=== PATIENT | female | born 1990 | race Caucasian/White ===

== ENCOUNTER 2019-04-05 20:33 | Emergency (ER) | payer OTHER, MEDICAID ==
[~2019-04-05] VITALS: Ht 162.6 cm; Wt 70.3 kg
[~2019-04-05 20:33] MED LIST: ACETAMINOPHEN-1 EAC1 PO; AMOXICILLIN500 M1 PO; AUGMENTIN 875875 MG PO; CLEOCIN HCL150 MG PO; DEPO-PROVE150 MG/1 M; EPIPEN 2-P0.3 MG/0.3; EPIPEN 2-P0.3 MG/0.3 IM; HYDROCODONE-AP1 EAC6 PO; KEFLEX500 MG PO; ZOFRAN4 MG PO
[2019-04-05] MEDS ORDERED: LATUDA80 MG PO (20:41)
[2019-04-05] MEDS ORDERED: VISTARIL 25 MG25 M1 PO (20:41)
[2019-04-05] MEDS ORDERED: NABUMETONE 750750 M1 PO (21:24)
[2019-04-05 22:14] VITALS: BP 150/81
== END 2019-04-05 22:18 | disposition home or self-care (01) ==
LOC: M.ERS 20:33
DX: S93.492A Sprain of other ligament of left ankle, initial encounter (principal); Z88.2 Allergy status to sulfonamides; Z88.1 Allergy status to other antibiotic agents; Z91.030 Bee allergy status; W01.0XXA Fall on same level from slipping, tripping and stumbling without subsequent striking against object, initial encounter; Y93.89 Activity, other specified; Y92.89 Other specified places as the place of occurrence of the external cause; Y99.8 Other external cause status

== ENCOUNTER 2020-10-27 11:34 | Emergency (ER) | payer OTHER ==
[~2020-10-27] VITALS: Ht 162.6 cm; Wt 61.2 kg
[~2020-10-27 11:34] MED LIST changes: +LATUDA80 MG PO; +NABUMETONE 750750 M1 PO; +VISTARIL 25 MG25 M1 PO
[2020-10-27] MEDS ORDERED: ATIVAN0.5 M1 PO (11:46)
[2020-10-27] MEDS ORDERED: LEXAPRO 10 MG T10 M1 PO (11:47)
[2020-10-27 11:57] LABS: URINE BILIRUBIN NEGATIVE (Negative); URINE BLOOD 1+ (Negative); URINE CLARITY CLEAR; URINE COLOR DARK YELLOW; URINE GLUCOSE-RANDOM TRACE (Negative); URINE KETONES NEGATIVE (Negative); URINE LEUKOCYTES 1+ (Negative); URINE NITRITE POSITIVE (Negative); URINE PROTEIN 1+ (Negative); URINE SPECIFIC GRAVITY 1.025 (1.005-1.030)
[2020-10-27 12:02] LABS: SQUAMOUS 4-10 Moderate /LPF (0-3)
[2020-10-27 12:03] LABS: CASTS None Seen /LPF (None Seen); CRYSTALS None Seen /LPF (None Seen); MUCUS 0-3 Light strn/LPF (None Seen); URINE RBC 3-10 Few /HPF (0-2); URINE WBC 0-5 Rare /HPF (0-5)
[2020-10-27] MEDS ORDERED: NAPROSYN500 MG PO (12:50)
[2020-10-27] MEDS ORDERED: MACROBID 100 M100 M1 PO (12:50)
[2020-10-27] MEDS ORDERED: TYLENOL325 M1 PO (12:50)
[2020-10-27 12:59] VITALS: BP 115/65
== END 2020-10-27 13:00 | disposition home or self-care (01) ==
LOC: M.ERS 11:34
PROVIDERS: Emergency Medicine
DX: N39.0 Urinary tract infection, site not specified (principal); Z20.822 Contact with and (suspected) exposure to COVID-19; Z88.1 Allergy status to other antibiotic agents; Z88.2 Allergy status to sulfonamides; Z91.030 Bee allergy status

== ENCOUNTER 2021-01-15 15:58 | Emergency (ER) | payer OTHER ==
[~2021-01-15] VITALS: Ht 162.6 cm; Wt 54.4 kg
[~2021-01-15 15:58] MED LIST changes: +ATIVAN0.5 M1 PO; +LEXAPRO 10 MG T10 M1 PO; +MACROBID 100 M100 M1 PO; +NAPROSYN500 MG PO; +TYLENOL325 M1 PO
[2021-01-15 16:09] VITALS: BP 116/71
== END 2021-01-15 16:30 | disposition home or self-care (01) ==
LOC: M.ERS 15:58
DX: F41.9 Anxiety disorder, unspecified (principal); F32.9 Major depressive disorder, single episode, unspecified; Z88.2 Allergy status to sulfonamides; Z88.1 Allergy status to other antibiotic agents; Z91.030 Bee allergy status

== ENCOUNTER 2021-01-17 16:03 | Emergency (ER) | payer OTHER ==
[~2021-01-17] VITALS: Ht 162.6 cm; Wt 54.4 kg
[2021-01-17 18:19] VITALS: BP 133/93
== END 2021-01-17 18:20 | disposition left against medical advice (07) ==
LOC: M.ERS 16:03
DX: Z53.21 Procedure and treatment not carried out due to patient leaving prior to being seen by health care provider (principal)

== ENCOUNTER 2021-06-13 12:33 | Emergency (ER) | payer OTHER ==
[~2021-06-13] VITALS: Ht 162.6 cm; Wt 63.5 kg
[~2021-06-13 12:33] MED LIST changes: -LEXAPRO 10 MG T10 M1 PO; +LEXAPRO20 MG PO
[2021-06-13] MEDS ORDERED: BUSPIRONE HCL10 MG PO (12:41)
[2021-06-13 13:33] VITALS: BP 113/78
== END 2021-06-13 13:34 | disposition home or self-care (01) ==
LOC: M.ERS 12:33
DX: J06.9 Acute upper respiratory infection, unspecified (principal); Z20.822 Contact with and (suspected) exposure to COVID-19; F32.9 Major depressive disorder, single episode, unspecified; F41.9 Anxiety disorder, unspecified; F17.210 Nicotine dependence, cigarettes, uncomplicated; Z79.899 Other long term (current) drug therapy; Z88.2 Allergy status to sulfonamides; Z91.030 Bee allergy status